=== PATIENT | female | born 1985 | race Caucasian/White ===

== ENCOUNTER → 2017-08-16 | Outpatient (CLI) | payer MEDICAID ==
[~2017-08-16] MED LIST: ESOM20CA PO; TRAZ100T15 PO
== END ==
LOC: CFH 11:12
PROVIDERS: ATTEND Physician Assistant
DX: N20.0 Calculus of kidney (principal)
CPT/HCPCS: 74018

== ENCOUNTER → 2020-03-18 | Outpatient (CLI) | payer MEDICAID ==
[~2020-03-18] MED LIST changes: +CYCL-259 PO; +FAMO10TA90 PO; +METH4TAB6 PO; +TRAZ-175 PO; -TRAZ100T15 PO
== END | disposition home or self-care (01) ==
LOC: STAR 10:12
PROVIDERS: ATTEND Anesthesiology
DX: Z01.812 Encounter for preprocedural laboratory examination (principal); Z20.828 Contact with and (suspected) exposure to other viral communicable diseases
CPT/HCPCS: 36415; 87635

== ENCOUNTER 2020-03-23 11:06 | Day surgery (SDC) | payer MEDICAID ==
[~2020-03-23] VITALS: Ht 170.2 cm; Wt 92.6 kg
[~2020-03-23 11:06] MED LIST changes: +LIDOCAINE/PF 1%-EPI 1:200K, 30 ML ONE; +ROPIvacaine/PF 0.5%, 30 ML ONE
[2020-03-23] MEDS ORDERED: LIDOCAINE-MPF 2% ,5ML ONE (11:37)
[2020-03-23] MEDS ORDERED: KETOROLAC 30 MG/1 ML ONE (11:37)
[2020-03-23] MEDS ORDERED: MIDAZOLAM 1 MG/ML, 2ML ONE (11:37)
[2020-03-23] MEDS ORDERED: FENTANYL PF 100 MCG/2ML ONE ×3 (11:37→13:16)
[2020-03-23] MEDS ORDERED: CEFAZOLIN 1,000 MG ONE (11:41)
[2020-03-23] MEDS ORDERED: DEXAMETHASONE 4 MG/ML, 1ML ONE (11:41)
[2020-03-23] MEDS ORDERED: ONDANSETRON 2MG/ML, 2ML ONE (11:41)
[2020-03-23] MEDS ORDERED: PROPOFOL 10 MG/ML, 20ML ONE (11:41)
[2020-03-23 11:48] VITALS: BP 134/86
[2020-03-23] MEDS ORDERED: CHLORHEXIDINE 15 ML UDC ONE (11:53)
[2020-03-23 12:00] LABS: HCG UR SG 1.018 (1.003-1.030)
[2020-03-23] MEDS ORDERED: LACTATED RINGERS 1,000 ML IV SCH (12:00)
[2020-03-23] MEDS ORDERED: CHLORHEXIDINE 15 ML UDC MM ONE (12:00)
[2020-03-23] MEDS ORDERED: LIDOCAINE 1%-EPI 1:100K, 30ML INFIL ONE (12:37)
[2020-03-23] MEDS ORDERED: ROPIvacaine/PF 0.5%, 30 ML INFIL ONE (12:38)
[2020-03-23] MEDS ORDERED: OXYcodone 5 MG/5 ML ORAL.SOL UDC PO PRN (13:00)
[2020-03-23] MEDS ORDERED: ACETAMINOPHEN 325 MG TABLET PO PRN (13:00)
[2020-03-23] MEDS ORDERED: LABETALOL 5MG/ML, 20ML IV PRN (13:00)
[2020-03-23] MEDS ORDERED: MEPERIDINE/PF 25MG/0.5ML IVPush PRN (13:00)
[2020-03-23] MEDS ORDERED: LORazepam 2 MG/ML, 1ML IVPush PRN (13:00)
[2020-03-23] MEDS ORDERED: PROMETHAZINE 25 MG/ML, 1ML IVPush PRN (13:00)
[2020-03-23] MEDS: FENTANYL PF 100 MCG/2ML IV PRN ×2 (13:12→13:42)
[2020-03-23] MEDS ORDERED: OXYcodone 5 MG/5 ML ORAL.SOL UDC ONE (13:16)
[2020-03-23] MEDS ORDERED: HYDROmorphone 1 MG/ML, 1ML INJ ONE (13:33)
[2020-03-23] MEDS: HYDROmorphone 1 MG/ML, 1ML INJ IVPush PRN ×2 (13:34→13:42)
== END 2020-03-23 14:45 | disposition home or self-care (01) ==
LOC: OUT 11:06
PROVIDERS: ATTEND Orthopaedic Surgery
DX: S83.232A Complex tear of medial meniscus, current injury, left knee, initial encounter (principal); M22.42 Chondromalacia patellae, left knee; K21.9 Gastro-esophageal reflux disease without esophagitis; E66.9 Obesity, unspecified; Z68.28 Body mass index [BMI] 28.0-28.9, adult; X58.XXXA Exposure to other specified factors, initial encounter; Y93.89 Activity, other specified; Y92.89 Other specified places as the place of occurrence of the external cause; Y99.8 Other external cause status
CPT/HCPCS: 29881; 81025; J0690; J1100; J1170; J1885; J2250; J2405; J2704; J2795; J3010